=== PATIENT | male | born 1930 | race Caucasian/White ===

== ENCOUNTER 2017-04-21 13:20 | Emergency (ER) | payer MEDICARE ==
[2017-04-21 15:09] LABS: Hemoglobin 13.1 g/dL (14.0-18.0); Mean Corpuscular HGB CONC 33.3 g/dL (32.0-36.0); Mean Corpuscular Hemoglobin 31.3 pg (27.0-31.0); Mean Corpuscular Volume 93.8 fl (80.0-94.0); RBC Distribution Width 12.5 % (11.5-14.5); Red Blood Cell (RBC) Count 4.19 mill/uL (4.70-6.10); White Blood Cell (WBC) Count 5.5 thou/uL (4.8-10.8)
[2017-04-21 15:24] LABS: Band 2 % (5-11); Eosinophils 2 % (0-10); Lymphocytes 14 % (21-51); MDiff Complete? YES; Monocytes 7 % (0-10); Neutrophil 75 % (42-75); PLT Morphology Comment Appears Decreased; Platelet Count 110 thou/uL (130-400)
[2017-04-21 15:25] LABS: Anion Gap 16 mmol/L (10-20); BUN (Urea Nitrogen) 27 mg/dL (8.4-25.7); Calc. Creatinine Clearance 0 mL/min (70-130); Carbon Dioxide 24 mmol/L (23-31); Chloride 100 mmol/L (98-107); Estimated GFR-MDRD 38; Glucose 88 mg/dL (83-110); Potassium 4.8 mmol/L (3.5-5.1); Sodium 135 mmol/L (136-145)
--- NOTE | 2017-04-21 15:58 | RAD ---
CHEST ONE VIEW: History: 86-year-old male with history of cough, fever, and chills. History of brain tumors. Comparison: 09-09-14 FINDINGS: Post underlying sternotomy. Elevation of the left hemidiaphragm with some pleural calcific changes bi laterally as well as some pleural and parenchymal changes in the left base. No new confluent process. IMPRESSION: Pleural calcification changes as well as pleural and parenchymal opacity changes in the left base wit h left hemidiaphragm elevation and left costophrenic angle blunting showing little change from prior study given differences in technique. No overt new confluent pneumonia. POS: [facility]
== END 2017-04-21 17:00 | disposition home or self-care (01) ==
LOC: ERS 13:20
DX: J11.1 Influenza due to unidentified influenza virus with other respiratory manifestations (principal); E03.9 Hypothyroidism, unspecified; I25.10 Atherosclerotic heart disease of native coronary artery without angina pectoris; E78.5 Hyperlipidemia, unspecified; I10 Essential (primary) hypertension; Z79.82 Long term (current) use of aspirin
CPT/HCPCS: 36415; 71045; 80048; 85025; 87040; 87804

== ENCOUNTER 2017-08-07 15:02 | Emergency (ER) | payer MEDICARE ==
[2017-08-07 15:34] LABS: Bilirubin Negative (Negative); Blood, Urine Negative (Negative); Clarity CLEAR (Clear); Glucose, Urine (Dipstick) Negative (Negative); Leukocyte Negative (Negative); Nitrite Negative (Negative); Protein, Urine (Dipstick) Negative (Neg-Trace); Urobilinogen 0.2 mg/dL (0.2-1.0); pH, Urine 5.5 (5.0-9.0)
[2017-08-07 15:55] LABS: Hemoglobin 12.5 g/dL (14.0-18.0); Mean Corpuscular HGB CONC 33.1 g/dL (32.0-36.0); Mean Corpuscular Hemoglobin 29.9 pg (27.0-31.0); Mean Corpuscular Volume 90.3 fl (80.0-94.0); Mean Platelet Volume 7.6 fL (7.4-10.4); Platelet Count 177 thou/uL (130-400); RBC Distribution Width 12.6 % (11.5-14.5); Red Blood Cell (RBC) Count 4.17 mill/uL (4.70-6.10); White Blood Cell (WBC) Count 6.5 thou/uL (4.8-10.8)
[2017-08-07 15:57] LABS: CKMB 1.8 ng/mL (0-6.6); Troponin I Less than 0.010 ng/mL (< 0.028)
[2017-08-07 15:57] LABS: ALT (SGPT) 9 U/L (8-55); AST (SGOT) 24 U/L (5-34); Albumin 3.9 g/dL (3.4-4.8); Alkaline Phosphatase 82 U/L (40-150); Anion Gap 14 mmol/L (10-20); BUN (Urea Nitrogen) 30 mg/dL (8.4-25.7); Bilirubin, Total 0.3 mg/dL (0.2-1.2); Calc. Creatinine Clearance 0 mL/min (70-130); Calcium 11.3 mg/dL (7.8-10.44); Carbon Dioxide 28 mmol/L (23-31); Chloride 101 mmol/L (98-107); Estimated GFR-MDRD 35; Globulin 3.5 g/dL (2.4-3.5); Glucose 97 mg/dL (83-110); Lipase 15 U/L (8-78); Potassium 4.7 mmol/L (3.5-5.1); Protein, Total 7.4 g/dL (5.8-8.1); Sodium 138 mmol/L (136-145)
[2017-08-07 16:24] LABS: Lymphocytes 45 % (21-51); MDiff Complete? YES; Monocytes 7 % (0-10); Neutrophil 48 % (42-75); PLT Morphology Comment Appears Adequate
--- NOTE | 2017-08-07 19:54 | CT ---
CT ABDOMEN AND PELVIS WITHOUT IV CONTRAST: 08/07/2017 PROVIDED CLINICAL HISTORY: Pelvic pain. COMPARISON: 09/07/2014 FINDINGS: Bilateral calcified pleural plaques are again noted. Multiple enlarged lymph nodes seen involving th e central abdominal mesentery and retroperitoneum are again noted, appearing similar to slightly enla rged with respect to the prior examination. Associated haziness of the central mesenteric fat. A small gallstone is noted. Right and left renal cysts are again seen. There is interval development of an ill-defined hypodense mass involving the caudate lobe region of t he liver, which is partially exophytic. This measures at least 3.8 cm in greatest transverse dimensi on and at least 4.2 cm in craniocaudal dimension. There is an additional subtle, approximately 1 cm hypodense focus within the posterior segment of the right hepatic lobe. There is splenomegaly, with the spleen measuring about 15.7 cm in craniocaudal dimension. The solid abdominal organs demonstrate an otherwise unremarkable unenhanced CT appearance. Prostatic enlargement is again seen. The urinary bladder is decompressed and not well evaluated. Th ere is apparent mural thickening and mild fat stranding about the urinary bladder. No bowel dilatati on, additional inflammatory fat stranding, free fluid, or free air apparent. IMPRESSION: 1. Mural thickening involving the urinary bladder with surrounding fat stranding, which may reflect cystitis. 2. Findings suspicious for lymphoma. 3. Newly developed hepatic masses, which may reflect metastatic disease. Correlation with nonemerge nt abdominal MRI recommended. POS: [facility]
== END 2017-08-07 19:10 | disposition home or self-care (01) ==
LOC: ERS 15:02
DX: N30.90 Cystitis, unspecified without hematuria (principal); E03.9 Hypothyroidism, unspecified; M19.90 Unspecified osteoarthritis, unspecified site; I25.10 Atherosclerotic heart disease of native coronary artery without angina pectoris; E78.5 Hyperlipidemia, unspecified; I10 Essential (primary) hypertension; Z79.899 Other long term (current) drug therapy; Z79.82 Long term (current) use of aspirin
CPT/HCPCS: 36415; 74176; 80053; 81003; 82553; 83690; 84484; 85025; 87086; 93005

== ENCOUNTER 2018-02-03 14:31 | Emergency (ER) | payer MEDICARE ==
[~2018-02-03 14:31] MED LIST: ISOVUE-370 76%-LOCM 1 ML ONE
[2018-02-03 15:11] LABS: Mean Corpuscular HGB CONC 30.7 g/dL (32.0-36.0); Mean Corpuscular Hemoglobin 26.8 pg (27.0-31.0); Mean Corpuscular Volume 87.4 fL (78.0-98.0); Mean Platelet Volume 7.8 fL (7.4-10.4); Platelet Count 185 thou/uL (130-400); RBC Distribution Width 16.2 % (11.5-14.5); Red Blood Cell (RBC) Count 3.73 mill/uL (4.70-6.10); White Blood Cell (WBC) Count 9.6 thou/uL (4.8-10.8)
[2018-02-03 15:21] LABS: #Eosinphils 0.1 thou/uL (0.0-0.7); #Lymphocytes 2.7 thou/uL (1.20-3.40); #Monocytes 0.4 thou/uL (0.11-0.59); #Neutrophils 6.9 thou/uL (1.40-6.50); %Basophils 0.2 % (0.0-1.0); %Eosinophils 0.6 % (0.0-10.0); %Lymphocytes 27.3 % (21.0-51.0); %Monocytes 3.8 % (0.0-10.0); %Neutrophils 68.2 % (42.0-75.0); Anisocytosis SLIGHT = 6-15 cells (100X) (0-5/hpf); Band 2 % (5-11); Lymphocytes 30 % (21-51); MDiff Complete? YES; Myelocyte 1 % (0-0); Neutrophil 67 % (42-75); PLT Morphology Comment Appears Adequate; Polychromasia SLIGHT = 2-3 cells (100X) (0-2/hpf)
[2018-02-03 15:23] LABS: ALT (SGPT) 458 U/L (8-55); AST (SGOT) 182 U/L (5-34); Albumin 3.2 g/dL (3.4-4.8); Alkaline Phosphatase 678 U/L (40-150); Anion Gap 14 mmol/L (10-20); BUN (Urea Nitrogen) 36 mg/dL (8.4-25.7); Bilirubin, Total 11.4 mg/dL (0.2-1.2); Calc. Creatinine Clearance 0 mL/min (70-130); Carbon Dioxide 19 mmol/L (23-31); Chloride 106 mmol/L (98-107); Estimated GFR-MDRD 44; Globulin 3.1 g/dL (2.4-3.5); Glucose 122 mg/dL (83-110); Lipase 99 U/L (8-78); Potassium 4.8 mmol/L (3.5-5.1); Protein, Total 6.3 g/dL (5.8-8.1); Sodium 134 mmol/L (136-145)
[2018-02-03 16:05] LABS: Blood, Urine Negative (Negative); Clarity CLOUDY (Clear); Glucose, Urine (Dipstick) Negative (Negative); Leukocyte Small (Negative); Protein, Urine (Dipstick) 30 mg/dL (Neg-Trace); Specific Gravity, Urine 1.022 (1.002-1.036)
[2018-02-03 16:07] LABS: Bacteria/HPF None Seen HPF (None Seen); Hyaline Casts/LPF 4-6 HYALINE CAST LPF (0-3 Hyaline); Squamous Epithelial None Seen HPF (0-3); WBC/HPF None Seen HPF (0-3)
[2018-02-03 16:08] LABS: Bilirubin Large (Negative); Nitrite Unable to Interpret (Negative)
[2018-02-03 16:17] LABS: Crystals/HPF RARE AMORPH URATES HPF (Negative); RBC/HPF 0-3 HPF (0-3)
--- NOTE | 2018-02-03 17:16 | CT ---
CT OF ABDOMEN AND PELVIS WITH CONTRAST: Date: 02/03/18 COMPARISON: 08/07/17 CT exam. INDICATION: Lymphoma. FINDINGS: There are numerous calcifications of the imaged low chest including multiple calcified pleural plaque s. There is a progressive in size mass infiltrating the hilar region of the liver with adjacent abnor mal intrahepatic biliary ductal dilatation. There is an oval hypodense mass at the superior aspect of the right hepatic lobe which has developed since the prior exam. There is an additional, smaller rou nded mass of the lateral aspect of the posterior segment right hepatic lobe. There is prominent adeno nomi redemonstrated, regionally, with marked interval progression of a conglomerate heather mass of th e retroperitoneum at and to the left of midline, which measures 9.3 x 7.6 cm in axial dimensions. The re is haziness of the abdominal mesentery. Prostate gland is enlarged and heterogeneous. There is und erdistention and wall prominence of the urinary bladder. No interval acute osseous abnormality. IMPRESSION: Progressive size of infiltrating mass of the hepatic hilum. This is concerning for entity such as cho langiocarcinoma, given location and appearance. 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 Progressive e xtensive adenopathy in keeping with history of lymphoma. POS: [facility]
--- NOTE | 2018-02-03 18:16 | PDOC.EVN ---
Event Note - Event Note Event Note: Resident team paged by [facility] for admission of pt with admission diagnosis of metastatic lymphoma and desire to get pt a second opinion from oncology regarding treatment options/management. Pt had no acute complaints or changes to his clinical status and he himself states he presented to ER to facilitate getting a second opinion. Pt has been under the care of [facility] until today when he revoked hospice in order to present to ER. Palliative care was consulted and asked to see the pt in ER as resident team, including attending physician, did not believe pt warranted admission to hospital. [facility] met with pt and discussed that he could receive second opinion as outpatient. Pt and were agreeable with discharge home and follow up with [facility] and PCP regarding further outpatient management. Pt will not be admitted and instead be discharge home from ER.
== END 2018-02-03 18:08 | disposition home or self-care (01) ==
LOC: ERS 14:31
DX: C85.93 Non-Hodgkin lymphoma, unspecified, intra-abdominal lymph nodes (principal); E03.9 Hypothyroidism, unspecified; I25.10 Atherosclerotic heart disease of native coronary artery without angina pectoris; E78.5 Hyperlipidemia, unspecified; I10 Essential (primary) hypertension; Z79.899 Other long term (current) drug therapy
CPT/HCPCS: 36415; 74177; 80053; 81003; 81015; 83690; 85025